=== PATIENT | female | born 1945 | race African-American/Black ===

== ENCOUNTER → 2016-10-21 | Outpatient (CLI) | payer OTHER | LOC: FIMAGING 08:10 | DX: Z12.31 Encounter for screening mammogram for malignant neoplasm of breast (principal); Z85.3 Personal history of malignant neoplasm of breast | CPT/HCPCS: G0202 ==

== ENCOUNTER 2017-02-05 05:44 | Observation (INO) | payer OTHER ==
--- NOTE | 2017-01-30 10:44 | GHP ---
[f rep st] HISTORY AND PHYSICAL DATE OF ADMISSION: 02/05/2017 CHIEF COMPLAINT: Left knee contracture. HISTORY OF PRESENT ILLNESS: The patient is a pleasant 71-year-old female, who presents today with continued complaints of stiffness in her left knee, as well as occasional activity-related lateral pain and swelling. She is just over 2 years status post left total knee arthroplasty performed by Dr. Samson, which has been complicated by postoperative stiffness. She has undergone a manipulation under anesthesia with partial improvement. The patient and Dr. Samson discussed several treatment options, including surgical intervention, including a left knee arthrotomy and poly insert exchange. She is here for preoperative visit for this proposed surgery. Her symptoms are unchanged since last visit. She has no additional concerns or complaints at this time. PAST MEDICAL HISTORY: The patient reports a past medical history significant for type 2 diabetes, hypertension, coronary artery disease, hypothyroidism, and gout. PAST SURGICAL HISTORY: This is significant for an excision of BCCIS, right knee arthroscopy, left knee arthroscopy, left total knee arthroplasty, and manipulation under anesthesia. CURRENT MEDICATIONS: The patient reports that she is taking lisinopril, hydrochlorothiazide, lovastatin, levothyroxine, Pepcid, allopurinol, albuterol, metformin, and aspirin 81 mg. The patient has been instructed to hold her aspirin for 7 days prior to surgery. ALLERGIES: None. The patient reports no known drug allergies. SOCIAL HISTORY: The patient reports she is a former smoker, but denies any current tobacco consumption. She also denies any current alcohol consumption, as well as any recreational drug use. FAMILY HISTORY: No significant contributory family history is reported today. REVIEW OF SYSTEMS: A 10-point review of systems was performed today with no additional concerns, complaints, or abnormal findings not noted in the HPI or PMH. PHYSICAL EXAMINATION: GENERAL: Healthy appearing female who presents in NAD, cooperative and pleasant with exam. HEENT: NC/AT. EOMI. PERRLA. Ears and nares are patent without discharge. OP is clear. NECK: NTTP, full ROM, supple. No cervical LAD noted. CARDIOVASCULAR: RRR, without M/C/G/R. RESPIRATORY: CTAB, no increased WOB noted. ABDOMEN: Soft, NT/ND, no HSM noted. MUSCULOSKELETAL: The patient presents with a non antalgic gait. She has approximately 7 degrees of genu valgum with well-healed anterior incision, no signs of infection. No effusion is noted today. No surrounding erythema, calor , discharge, or induration. ROM is noted to approximately 5 degrees of extension lag, and flexion to 90 degrees. DNVI BLE. SKIN: Please see above dictation concerning left knee. No additional ecchymosis, erythema, calor, or edema is noted. NEUROLOGIC: Nonfocal, no deficits noted. PSYCH: A and O x3, appropriate mood and affect. Speech is noted to be fluid and fluent. RADIOGRAPHS: 2 views of the left knee are reviewed today showing good positioning of the implant with no signs of hardware loosening or malalignment. ASSESSMENT: Left knee contracture, status post left total knee arthroplasty. ( ICD-10: M24.562). PLAN: This patient has decided to proceed with the proposed procedure, a left knee arthrotomy and poly exchange, with probably lysis of adhesions if present, which will be performed by Dr. Samson at [facility]. All the necessary paperwork for [facility] was completed today, and signed informed consent for surgery was obtained. Preoperative orders were completed in [employer]. A recuperative timeline was discussed. The patient will be receiving outpatient physical therapy, as well as a continuous passive motion (CPM) machine during her hospital stay and while at home. We will work on authorization for this. The patient is scheduled to follow up with Dr. Samson 10-14 days postoperatively, or sooner with any additional concerns or complaints. No prescription for postoperative pain medication was written today , as this will be addressed while the patient is an inpatient. She will also likely to be taking aspirin for postoperative VTE chemoprophylaxis. All the patient's questions were answered today, and her concerns addressed. She has relayed her understanding of the current care plan and education presented today , and appears pleased with the care she has received today. It has been my pleasure to assist in the care of this patient. /[id number]/MODL MTDD
[2017-02-05] MEDS ORDERED: NS IV ONE ×2 (06:00→08:45)
[2017-02-05] MEDS ORDERED: TRANEXAMIC ACID IV ONE ×2 (06:00→08:45)
[2017-02-05] MEDS ORDERED: ACETAMINOPHEN 325 MG TAB PO ONE (06:09)
[2017-02-05] MEDS ORDERED: FAMOTIDINE 20 MG TAB PO ONE (06:09)
[2017-02-05] MEDS ORDERED: DEXAMETHASONE 4 MG/ML VIAL IVP ONE (06:09)
[2017-02-05] MEDS ORDERED: ceFAZolin 2 GM/DEXTROSE 100 ML IV ONE (06:09)
[2017-02-05] MEDS ORDERED: LIDOCAINE 1% 2 ML INJ ID PRN (06:11)
[2017-02-05] MEDS ORDERED: LR 1,000 ML IV ONE (06:11)
--- NOTE | 2017-02-05 07:05 | PDANEPAE ---
ANE History of Present Illness Patient presents for knee scope. ANE Past Medical History - Cardiovascular History Hx Hypertension: Yes Hx Arrhythmias: No Hx Chest Pain: Yes Hx Coronary Artery / Peripheral Vascular Disease: Yes Hx CHF / Valvular Disease: No Hx Palpitations: No Cardiovascular History Comment: HYPERLIPIDEMIA. HEART CATH 2013. CHEST PAIN IN PAST - NONE RECENT. ANEMIA IN PAST - Pulmonary History Hx COPD: No Hx Asthma/Reactive Airway Disease: Yes Hx Recent Upper Respiratory Infection: No Hx Sleep Apnea: No Sleep Apnea Screening Result - Last Documented: Negative Pulmonary History Comment: NO INHALER - Neurologic History Hx Cerebrovascular Accident: No Hx Seizures: No Hx Dementia: No Neurologic History Comment: NEUROPATHY KANIKA FEET - Endocrine History Hx Diabetes: Yes Endocrine History Comment: DM II - TAKES METFORMIN. HYPOTHYROID - LEVOTHYROXINE - Renal History Hx Renal Disorders: No - Liver History Hx Hepatic Disorders: No - Neurological & Psychiatric Hx Hx Neurological and Psychiatric Disorders: Yes Neurological / Psychiatric History Comment: DEPRESSION - Cancer History Hx Cancer: Yes Cancer History Comment: BREAST CA - Congenital Disorder History Hx Congenital Disorders: No - GI History Hx Gastrointestinal Disorders: Yes Gastrointestinal History Comment: ACID REFLUX. HIATAL HERNIA - Other Health History Other Health History: OSTEOARTHRITIS. RECENT NOSE BLEEDS W/CAUTERY. GOUT - Chronic Pain History Chronic Pain: No (ARTHRITIS - KNEE, NECK HANDS) - Surgical History Prior Surgeries: L TKA. SHOULDER KANIKA. BX & LUMPECTOMY R BREAST. FIBROID CYSTS ANE Review of Systems - Exercise capacity Exercise capacity: >=4 METS METS (RN): 4 METS ANE Patient History - Allergies Allergies/Adverse Reactions: adhesive tape Allergy (Verified 02/05/17 06:46) latex Allergy (Verified 04/04/13 09:18) Rash - Home Medications Home medications: home medication list seen and reviewed Home Medications: Allopurinol [Allopurinol 300 MG (RX)] 300 mg PO DAILY@1400 10/03/14 [Last Taken 02/05/17 05:00] Aspirin [Aspirin 81mg (*)] 81 mg PO DAILY 10/03/14 [Last Taken 02/02/17 08:00] Famotidine [Pepcid] 20 mg PO DAILY 10/03/14 [Last Taken 02/03/17 22:00] Herbals/Supplements -Info Only 1 ea PO DAILY 10/03/14 [Last Taken 02/02/17 08:00 ] Hydrochlorothiazide [HCTZ (*)] 25 mg PO DAILY 10/03/14 [Last Taken 02/02/17 08: 00] Levothyroxine [Synthroid 50 mcg (*)] 50 mcg PO DAILY 10/03/14 [Last Taken 05:00] Lisinopril [Zestril 5 mg (*)] 5 mg PO DAILY 10/03/14 [Last Taken 02/02/17 08:00] Lovastatin 20 mg PO HS 10/03/14 [Last Taken 02/04/17 20:00] Naproxen Sodium [Aleve 220 MG (*)] 220 mg PO HS 10/03/14 [Last Taken 01/30/17] metFORMIN HCL [Glucophage 500 mg (*)] 500 mg PO DAILY 10/03/14 [Last Taken 02/02 08:00] - NPO status NPO Status: no food or drink >8 hours NPO Since - Liquids (Date): 02/05/17 NPO Since - Liquids (Time): 05:00 NPO Since - Solids (Date): 02/04/17 NPO Since - Solids (Time): 19:00 - Anes Hx Anes Hx: no prior problems - Smoking Hx Smoking Status: Former smoker - Family Anes Hx Family Hx Anesthesia Complications: NEG ANE Labs/Vital Signs - Vital Signs Blood Pressure: 167/67 Heart Rate: 61 Respiratory Rate: 15 O2 Sat (%): 93 Height: 162.56 cm Weight: 67.585 kg ANE Physical Exam - Airway Neck exam: FROM Mallampati Score: Class 2 Mouth exam: normal dental/mouth exam - Pulmonary Pulmonary: no respiratory distress - Cardiovascular Cardiovascular: regular rate and rhythym - ASA Status ASA Status: III ANE Anesthesia Plan Anesthesia Plan: GA w LMA (RBA discussed. Pt agrees to proceed. )
[2017-02-05] MEDS ORDERED: DEXAMETHASONE 4 MG/ML VIAL ONE (07:08)
[2017-02-05] MEDS ORDERED: fentaNYL 100 MCG/2 ML INJ ONE ×3 (07:08→10:01)
[2017-02-05] MEDS ORDERED: PROPOFOL/EMULSION 500 MG/50 ML BOTTLE IV ONE (07:08)
[2017-02-05] MEDS ORDERED: PROPOFOL 200 MG/20 ML VIAL ONE (07:08)
[2017-02-05] MEDS ORDERED: ONDANSETRON 4 MG/2 ML VIAL ONE (07:09)
[2017-02-05] MEDS ORDERED: ceFAZolin 1 GM/5 ML SYR ONE ×2 (07:18→07:30)
[2017-02-05] MEDS ORDERED: ROPIVACAINE 0.2% 80 MG, EPINEPHrine 0.2 MG, KETOROLAC TROMETHAMINE 30 MG, morphINE 10 M... IU ONE (07:19)
--- NOTE | 2017-02-05 07:29 | PDHPUP ---
History & Physical Update H&P update statement: This history and physical update is based on an assessment of the patient which was completed after admission or registration (within 24 hours), but prior to the surgery/procedure. H&P update: no change in patient's condition since H&P completed
[2017-02-05] MEDS: BUPIVACAINE/EPI 0.25% 30 ML SDV ONE ×2 (08:21→08:42)
[2017-02-05] MEDS ORDERED: NALOXONE HCL 0.4 MG/ML INJ IVP PRN (08:43)
[2017-02-05] MEDS ORDERED: fentaNYL 100 MCG/2 ML INJ IVP PRN (08:43)
[2017-02-05] MEDS ORDERED: HYDROCODONE/APAP 5/325 TAB PO PRN (08:43)
[2017-02-05] MEDS ORDERED: ONDANSETRON 4 MG/2 ML VIAL IVP PRN ×2 (08:43→09:05)
[2017-02-05] MEDS ORDERED: OXYCODONE/APAP 5/325 TAB PO PRN (08:43)
[2017-02-05] MEDS ORDERED: diphenhydrAMINE 25 MG CAP PO PRN (09:05)
[2017-02-05] MEDS ORDERED: PROMETHAZINE HCL 25 MG SUPPR PR PRN (09:05)
[2017-02-05] MEDS ORDERED: METOCLOPRAMIDE 10 MG/2 ML VIAL IVP PRN (09:05)
[2017-02-05] MEDS ORDERED: CYCLOBENZAPRINE 10 MG TAB PO PRN (09:05)
[2017-02-05] MEDS ORDERED: DIPHENOXYLATE/ATROPINE LOMOTIL 1 TAB PO PRN (09:05)
[2017-02-05] MEDS ORDERED: oxyCODONE IR 5 MG TAB PO PRN (09:05)
[2017-02-05] MEDS ORDERED: LACTULOSE 20 GM/30 ML UDCUP PO PRN (09:05)
[2017-02-05] MEDS ORDERED: BISACODYL 10 MG SUPP PR PRN (09:05)
[2017-02-05] MEDS ORDERED: ONDANSETRON DISINTEGRATING 4 MG TAB PO PRN (09:05)
[2017-02-05] MEDS ORDERED: POLYETHYLENE GLYCOL 3350 17 GM PKT PO PRN (09:05)
[2017-02-05] MEDS ORDERED: MAGNESIUM HYDROXIDE 30 ML UDCUP PO PRN (09:05)
[2017-02-05] MEDS ORDERED: PHARMACY PAIN CONSULT 1 EA MISC PRN (09:05)
[2017-02-05] MEDS ORDERED: PROMETHAZINE HCL 25 MG/ML INJ IVP PRN (09:05)
[2017-02-05] MEDS ORDERED: TEMAZEPAM 15 MG CAP PO PRN (09:05)
--- NOTE | 2017-02-05 09:05 | POSTOPPROG ---
Post Op Note Date of Operation: 02/05/17 Surgeon: Vicky Samson Director Of Acquisition Marketing: Tita Pre-op Diagnosis: Left knee contracture Post-op Diagnosis: Left knee contracture Procedure: Left knee arthrotomy, poly exchange, lysis of adhesions Findings: As above, please see full dictation for details. Inf/Abcess present in the surg proc area at time of surgery?: No Depth: Deep Incisional (Fascial) EBL: Minimal Complications: None. Drains: Dwight Fuentes
[2017-02-05] MEDS ORDERED: NS 1,000 ML IV SCH (09:15)
--- NOTE | 2017-02-05 09:17 | POSTANESTH ---
Post Anesthetic Evaluation Cardiovascular Status: Normal, Stable, Similar to Pre-Op Cond Respiratory Status: Normal, Stable Level of Consciousness/Mental Status: Can Participate in Eval Pain Control: Adequate, Prn Tx Ordered Nausea/Vomiting Control: Adequate, Prn Tx Ordered Complications Possibly Related to Anesthesia: None Noted
[2017-02-05] MEDS ORDERED: LISINOPRIL 10 MG TAB PO ONE (09:58)
--- NOTE | 2017-02-05 10:10 | GOP ---
[f rep st] OPERATIVE REPORT DATE OF OPERATION: 02/05/2017 SURGEON: Leilani Samson MD DIRECTOR OF CATH LAB: Sofia Rivers PA-C. ANESTHESIA: General. Use of a surgical forceps fabricator was required for retraction and surgical exposure. PREOPERATIVE DIAGNOSIS: Left knee stiffness status post total knee arthroplasty. POSTOPERATIVE DIAGNOSIS: Left knee stiffness status post total knee arthroplasty. PROCEDURE PERFORMED: 1. Left knee arthrotomy with lysis of adhesions. 2. Revision of polyethylene liner. 3. Manipulation under anesthesia. FINDINGS: INDICATIONS: This is a 71-year-old female who was over 2 years status post total knee arthroplasty. The patient presents with decreased range of motion, stiffness, and is desiring further treatment. She has failed previous manipulation under anesthesia as well as prolonged physical therapy. DESCRIPTION OF PROCEDURE: After an adequate general anesthetic was obtained and IV antibiotics were administered, an exam under anesthesia revealed range of motion 5 to 90 degrees. The knee was quit e stable to varus/valgus as well as anterior/posterior stress. Trace effusion was present. The left lower extremity was now prepped and draped in the usual sterile fashion. The limb was exsa nguinated with the Esmarch and tourniquet elevated to 300 mmHg pressure. The previous midline incis ion was utilized. Dissection was carried down through the subcutaneous tissue. Hemostasis was obta ined using electrocautery. A medial arthrotomy was performed. Intraoperative cultures including an aerobic and aerobic cultures were taken. The knee fluid did appear clear and nonpurulent. There was significant, very dense scar tissue both in the suprapatellar pouch as well as medial and lateral gutters and anteriorly. This was resected with Guerin scissors. To improve range of motion, we also elected to revise the polyethylene liner. The previous 11 mm li ner was removed. The joint space was copiously irrigated with pulse-style lavage. The new Jeronimo an d Nephew size 4, 9 mm Legion CR XLPE high flex articular insert was impacted into place. A manipula tion under anesthesia was now performed, and we were able to easily obtain 0 to 125 degrees of knee flexion. Hemostasis was obtained using electrocautery. A large drain was left in place intra-articularly. T he medial arthrotomy was closed using interrupted #2 FiberWire sutures as well as #1 Vicryl sutures. Subcutaneous closure performed using interrupted 2-0 Vicryl sutures, and the skin closed using sta inless steel teo. A standard joint cocktail comprised of ropivacaine, Toradol, and morphine was injected. Again, range of motion 0 to 125 degrees was confirmed. Sterile dressings were applied followed by an HERNANDO wrap, and the tourniquet was deflated. There were no complications. The patient tolerated the procedure well and returned to the recovery room in stable condition. /[id number]/MODL
[2017-02-05] MEDS: ACETAMINOPHEN 325 MG TAB PO SCH ×2 (11:59→17:40)
[2017-02-05] MEDS: KETOROLAC 30 MG/1 ML SDV IVP SCH ×2 (11:59→17:40)
[2017-02-05] MEDS: ceFAZolin 2 GM/DEXTROSE 100 ML IV SCH ×2 (14:21→21:23)
[2017-02-05 20:15] VITALS: RESP 16
[2017-02-05] MEDS ORDERED: NON-FORMULARY NEW DRUG (Lovastatin [Lovastatin] 20 MG) PO SCH (21:00)
[2017-02-05] MEDS ORDERED: PRAVASTATIN SODIUM 20 MG TAB PO SCH (21:00)
[2017-02-05] MEDS ORDERED: FAMOTIDINE 20 MG TAB PO SCH (21:00)
[2017-02-05] MEDS: ASPIRIN 325 MG TAB PO SCH (21:20)
[2017-02-05] MEDS: SENNOSIDES/DOCUSATE SODIUM TAB PO SCH (21:20)
[2017-02-06] MEDS: KETOROLAC 30 MG/1 ML SDV IVP SCH ×2 (00:38→06:29)
[2017-02-06] MEDS: ACETAMINOPHEN 325 MG TAB PO SCH ×2 (00:38→06:29)
[2017-02-06 04:58] LABS: HEMATOCRIT 34.3 % (38.0-47.0); HEMOGLOBIN 11.3 g/dL (12.6-16.3); MEAN CELL HEMOGLOBIN 30.1 pg (27.9-34.1); MEAN CELL HEMOGLOBIN CONCENTR. 32.9 g/dL (32.4-36.7); MEAN CELL VOLUME 91.2 fL (81.5-99.8); RED BLOOD CELL COUNT 3.76 10^6/uL (4.18-5.33); RED CELL DISTRIBUTION WIDTH 13.2 % (11.5-15.2)
[2017-02-06 05:23] LABS: ANION GAP 11 mEq/L (8-16); CARBON DIOXIDE 21 mEq/l (22-31); CHLORIDE 107 mEq/L (97-110); CREATININE 1.2 mg/dL (0.6-1.0); GLOMERULAR FILTRATION RATE 44; GLUCOSE 171 mg/dL (70-100); POTASSIUM 4.1 mEq/L (3.5-5.2); SODIUM 139 mEq/L (134-144)
--- NOTE | 2017-02-06 07:06 | SOAPPROG ---
SOAP Progress Note Assessment/Plan: AssessmentPlan: L knee contracture s/p L Knee arthrotomy, poly exchange and lysis of adhesions, POD #1 -Cont PT/OT -Cont SCDs and TEDs for VTE mechanical prophylaxis -Cont ASA for VTE chemoprophylaxis -Cont current PO pain regimen -Drain d/c today -Ok to d/c today pending PT/OT approval, and successful PO pain management 02/06/17 08:10 Subjective: Pt seen at bedside. No complaints of significant pain today. Denies prather, sob, cp, dizziness, syncope, abd pain, n/v/d, post calf pain or n/t. She states she is tolerating her diet and medications well. She has no additional concerns or complaints. She is anxious to d/c to home. Objective: Vital Signs Temp Pulse Resp BP Pulse Ox 36.9 C 55 L 16 177/79 H 94 02/06/17 04:00 02/06/17 04:00 02/06/17 04:00 02/06/17 04:00 02/06/17 04:00 Microbiology 02/05/17 08:05 Gram Stain - Final Knee - Eswab 02/05/17 08:05 Gram Stain - Final Knee - Eswab Laboratory Results 02/06/17 04:17 02/06/17 04:17 02/05/17 02/06/17 02/07/17 05:59 05:59 05:59 Intake Total 2064 Output Total 2024 Balance 40 Pt seen at bedside. A&Ox3, appropriate mood and affect, pleasant and cooperative with exam. Exam of LLE reveals intact post operative dressings, minimal non-active bloody discharge. Drain in place, removed without complication. Intact teo, no surrounding erythema, calor, discharge or induration. Post calves are NTTP, no palpable vascular cords, neg Froylan's bilat. Pt moves leg well. DNVI BLE. ICD10 Worksheet Patient Problems: Problems Problem Status Onset Contracture of left knee Acute Diabetes Acute Knee osteoarthritis Acute
[2017-02-06] MEDS ORDERED: OXYCODONE/APAP 5/325 TAB PO PRN (07:24)
[2017-02-06 07:50] VITALS: BP 169/57; TEMP 97.8
[2017-02-06] MEDS ORDERED: metFORMIN HCL 500 MG TAB PO SCH (09:00)
[2017-02-06] MEDS ORDERED: LEVOTHYROXINE 50 MCG TAB PO SCH (09:00)
[2017-02-06] MEDS ORDERED: HYDROCHLOROTHIAZIDE 25 MG TAB PO SCH (09:00)
[2017-02-06] MEDS ORDERED: FAMOTIDINE 20 MG TAB PO SCH (09:00)
[2017-02-06] MEDS ORDERED: ALLOPURINOL 300 MG TAB PO SCH (09:00)
[2017-02-06] MEDS ORDERED: LISINOPRIL 10 MG TAB PO SCH (09:00)
[2017-02-06] MEDS: SENNOSIDES/DOCUSATE SODIUM TAB PO SCH (09:26)
[2017-02-06] MEDS: ASPIRIN 325 MG TAB PO SCH (09:26)
--- NOTE | 2017-02-06 09:30 | PDDCSUM ---
Discharge Summary Discharge Summary: DATE OF ADMISSION: 02/05/2017 DATE OF DISCHARGE: 02/06/2017 PREOPERATIVE DIAGNOSIS: Left knee contracture POSTOPERATIVE DIAGNOSES: Left knee contracture PROCEDURE PERFORMED: Left knee arthrotomy, poly exchange, and lysis of adhesions. HISTORY OF PRESENT ILLNESS: Marry is a pleasant 71 yo female who presents with continued left knee decreased ROM s/p L TKA, and HANNA. HOSPITAL COURSE: The patient was admitted, placed on IV Ancef for antibiotic measure, and taken operating room on 02/06/17, whereupon she underwent a left knee arthrotomy, poly exchange, and lysis of adhesions with Dr. Leilani Samson. There were no intraoperative complications. Postoperative treatment for DVT prophylaxis includes mechanical prophylaxis with ZO hose placement and sequential compression dressings, as well as Aspirin for DVT chemoprophylaxis. She was consulted by physical and occupational therapy. Her incision appears to be healing well at the time of discharge, and her hospital stay was otherwise uneventful. DISCHARGE INSTRUCTIONS: The patient is to be weightbearing as tolerated on her left lower extremity. She is to undergo outpatient physical therapy, which will begin early next week. She will also be using a CPM device at home. Instructions for its initial use are provided in the patient's discharge instructions. The patient will follow up estela Samson 10-14 days postoperatively, or sooner with any additional concerns or complaints. This appointment has been previously scheduled. MEDICATIONS UPON DISCHARGE: 1. Percocet 5/325 m-2 tabs PO q 4-6hrs PRN for severe pain 2. Aspirin 325mg 1 tab PO daily for 21 days postoperatively, then the patient may resume her normal 81 mg dose. This patient is also to resume her preoperative medications at their prescribed dosage as directed in the discharge plan.
[2017-02-06 13:03] VITALS: PULSE 57; O2SAT 97
== END 2017-02-06 11:39 | disposition home or self-care (01) ==
LOC: FSGY 05:44 → INTOOBSV 09:41 → F3N 09:41
PROVIDERS: ADMIT Orthopaedic Surgery Sports Medicine; ATTEND Orthopaedic Surgery Sports Medicine
PROC: 0SPU0JZ Removal of Synthetic Substitute from Left Knee Joint, Femoral Surface, Open Approach (ICD-10-PCS; principal; 2017-02-05 07:15)
PROC: 0S9D0ZX Drainage of Left Knee Joint, Open Approach, Diagnostic (ICD-10-PCS; principal; 2017-02-05 07:15)
PROC: 0SUU09Z Supplement Left Knee Joint, Femoral Surface with Liner, Open Approach (ICD-10-PCS; principal; 2017-02-05 07:15)
PROC: 0SBD0ZZ Excision of Left Knee Joint, Open Approach (ICD-10-PCS; principal; 2017-02-05 07:15)
DX: M24.562 Contracture, left knee (principal); M25.662 Stiffness of left knee, not elsewhere classified; E11.9 Type 2 diabetes mellitus without complications; I12.9 Hypertensive chronic kidney disease with stage 1 through stage 4 chronic kidney disease, or unspecified chronic kidney disease; M10.9 Gout, unspecified; E78.5 Hyperlipidemia, unspecified; I44.7 Left bundle-branch block, unspecified; I25.10 Atherosclerotic heart disease of native coronary artery without angina pectoris; N18.3 Chronic kidney disease, stage 3 (moderate); R80.1 Persistent proteinuria, unspecified; Z85.3 Personal history of malignant neoplasm of breast; Z87.891 Personal history of nicotine dependence; Z96.652 Presence of left artificial knee joint
CPT/HCPCS: 27486; 73560; 97116; 97161; 97165; 97530; G0378; G8978; G8979; G8980; G8987; G8988; G8989; J0171; J0690; J1100; J1885; J2405; J2704; J2795; J3010

== ENCOUNTER → 2017-10-22 | Outpatient (CLI) | payer OTHER | LOC: FIMAGING 13:34 | PROVIDERS: ATTEND Nurse Practitioner | DX: Z12.31 Encounter for screening mammogram for malignant neoplasm of breast (principal); Z85.3 Personal history of malignant neoplasm of breast; Z80.3 Family history of malignant neoplasm of breast ==

== ENCOUNTER → 2018-10-28 | Outpatient (CLI) | payer OTHER | LOC: FIMAGING 13:18 | PROVIDERS: ATTEND Nurse Practitioner | DX: Z12.31 Encounter for screening mammogram for malignant neoplasm of breast (principal); Z85.3 Personal history of malignant neoplasm of breast ==